=== PATIENT | male | born 1955 | race Caucasian/White ===

== ENCOUNTER 2016-12-09 15:13 | Emergency (ER) | payer MEDICARE ==
--- NOTE | ~2016-12-09 | ER ---
PATIENT'S NAME: DARREN [facility] AGE: 61 Y [address] ROOM: [place] [address] LOCATION: ED ADMIT DATE: 12/09/2016 ER/Outpatient Report DISCHARGE DATE: 12/09/2016 FAMILY PHYSICIAN: PHYSICIAN, NO ATTENDING PHYSICIAN: Radames Sibley CHIEF COMPLAINT: Severe low back pain, bilateral low back. HISTORY OF PRESENT ILLNESS: The patient states that he has chronic low back issues and has a history of spine surgery. He had been doing well with his normal issues with urinary retention and constipation that have not changed, however, the pain in his low back has been worse today. He spent yesterday mostly sitting on a golf cart which is unusual for him. His Tylenol has not been helping. He did not feel any significant acute changes and has no recent falls or other injuries to the area. He is otherwise at his baseline. He denies any weakness or numbness or tingling in the lower extremities that is new. PAST MEDICAL HISTORY: Documented on the record and reviewed by me. SOCIAL HISTORY: Documented on the record and reviewed by me. MEDICATIONS: Documented on the record and reviewed by me. ALLERGIES: DOCUMENTED ON THE RECORD AND REVIEWED BY ME. REVIEW OF SYSTEMS: All systems reviewed and negative except as noted in the HPI. PHYSICAL EXAMINATION: VITAL SIGNS: Blood pressure 151/82, pulse is 72, respiratory rate is 18, temperature 97.9, SpO2 is 96% on room air. Pain is rated 8/10. GENERAL: Age-appropriate male, wheeled into the exam room in a wheelchair, in [id number] pain with no respiratory distress. NEUROLOGIC: Awake and alert. GCS 15. No obvious deficits with slightly decreased strength and sensation in the lower extremities, which he states is baseline. HEENT: Normocephalic, atraumatic. Eyes are PERRL. Oropharynx is clear. NECK: Supple. Trachea is midline. HEART: Regular rate and rhythm with no murmurs. PATIENT'S NAME: DARREN [facility] AGE: 61 Y [address] ROOM: [place] [address] LOCATION: ED ADMIT DATE: 12/09/2016 ER/Outpatient Report DISCHARGE DATE: 12/09/2016 FAMILY PHYSICIAN: PHYSICIAN, NO ATTENDING PHYSICIAN: Radames Sibley LUNGS: Clear to auscultation bilaterally. No rhonchi, wheezes, or rales. ABDOMEN: Soft, nontender, and nondistended. No rebound or guarding. BACK: Notable for tenderness at the L2, L3, L4 region. It is midline. No overlying skin changes. No fluctuance. The extremities are otherwise warm and well perfused. No obvious abnormalities otherwise. SKIN: Warm and intact. LABORATORY DATA AND X-RAYS: CT of the lumbar spine shows no acute processes. IMPRESSION: Severe musculoskeletal low back pain. EMERGENCY DEPARTMENT COURSE: The patient was evaluated as above. Given his age and severe midline back pain, CT scan was obtained with no acute changes as above. He was given tramadol with marked improvement in his symptoms. He was able to walk at his baseline with a cane. We will give him a short prescription for tramadol. Recommend activity as tolerated. Follow up with primary care providers as needed or return immediately if there is any worsening of his baseline constipation and urinary retention issues or other any new sensory changes. His neuro exam is at his baseline and it is not consistent with an acute change indicating possibility of cauda equina syndrome. MD ZION BUENO/laina /[id number] d: 12/10/16 1616 t: 12/11/16 0642, OUTPATIENT REPORT
[~2016-12-09 15:13] MED LIST: AFRIN) (GENASAL15 ML NOSE; ALEVE220 MG PO; LEVAQUIN250 MG PO; TYLENOL EXTRA500 MG PO; TYLENOL/COD#31 TAB PO
[2017-02-04] MEDS ORDERED: MEDROL4 MG PO (14:42)
== END 2016-12-09 17:37 | disposition disaster alternative care site (69) ==
LOC: GMED 15:13
DX: M54.5 Low back pain (principal)

== ENCOUNTER → 2017-02-06 | Day surgery (SDC) | payer MEDICARE ==
[~2017-02-06] VITALS: Ht 167.6 cm; Wt 75.0 kg
[~2017-02-06] MED LIST changes: +MEDROL4 MG PO; +NORCO 5-325 TA1 EACH PO
--- NOTE | ~2017-02-06 | OR ---
PATIENT'S NAME: DARREN BROWNING [facility] AGE: 61 Y [address] ROOM: [place] [address] LOCATION: [facility] ADMIT DATE: 02/06/2017 OR/Procedure Report DISCHARGE DATE: FAMILY PHYSICIAN: DEWEY CALDERON MD ATTENDING PHYSICIAN: Carissa Gutiérrez SURGEON: Keshawn Marie MD SAND SCREENER OPERATOR: DATE OF PROCEDURE: 02/06/2017 PROCEDURE: Left L4-L5 transforaminal epidural steroid injection. The patient has lumbar disk disease with radiculopathy left side greater than the right. He has had a prior laminectomy, low back pain, and degenerative disc disease. Risks, benefits, and alternatives were explained to the patient and he wished to proceed. DESCRIPTION OF PROCEDURE: He was taken to the procedure room and placed in prone position. Back was prepped with Betadine x3 and sterile drape applied over top. Fluoroscopy was then used to identify the L4-L5 interspace. After that, 3 mL of 1% lidocaine was used for local anesthetic. Next, under fluoroscopic guidance, a 22-gauge 3.5-inch spinal needle was advanced into position. Once it was felt to be in position, 1 mL of contrast was injected in the AP and lateral views, that showed good spread around the nerve root and spread in the epidural space. Next, a mixture of 2 mL of 2% lidocaine and 10 mg of preservative-free Decadron were injected without complication. Complications none. Blood loss none. Stylette placed. Needle removed. Hemostasis was achieved. The patient had multiple levels of potential disease. He immediately postop had significant relief of his pain. If this does not last, he may benefit from a transforaminal injection at another site, possibly 3-4. We will follow up with him in approximately 2 weeks. KESHAWN MARIE MD JJP/modl /[id number] d: 02/06/17 2145 t: 02/07/17 1501, OPERATIVE SUMMARY
== END | disposition disaster alternative care site (69) ==
LOC: GPOC 02-04 13:00 → GSDC 13:00
PROC: 3E0R3BZ Introduction of Anesthetic Agent into Spinal Canal, Percutaneous Approach (ICD-10-PCS; principal; 2017-02-06)
PROC: 3E0R33Z Introduction of Anti-inflammatory into Spinal Canal, Percutaneous Approach (ICD-10-PCS; 2017-02-06)
DX: M51.16 Intervertebral disc disorders with radiculopathy, lumbar region (principal); M48.06 Spinal stenosis, lumbar region; F17.200 Nicotine dependence, unspecified, uncomplicated; Z98.1 Arthrodesis status; Z98.890 Other specified postprocedural states

== ENCOUNTER 2017-03-19 16:00 | Inpatient (IN) | payer MEDICARE ==
[~2017-03-19] VITALS: Ht 167.6 cm; Wt 77.1 kg
--- NOTE | ~2017-03-19 | OR ---
PATIENT'S NAME: DARREN BROWNING [facility] AGE: 61 Y [address] [place]OM: [facility] [place] [place], [place] [address] LOCATION: [facility] ADMIT DATE: 03/20/2017 OR/Procedure Report DISCHARGE DATE: 03/23/2017 FAMILY PHYSICIAN: Marvin Terrazas MD ATTENDING PHYSICIAN: Carissa Gutiérrez SURGEON: Carissa Gutiérrez MD PREFINISH OPERATOR: Belinda Jones. DATE OF PROCEDURE: 03/20/2017 PREOPERATIVE DIAGNOSIS: Lumbar spinal stenosis. POSTOPERATIVE DIAGNOSIS: Lumbar spinal stenosis. PROCEDURES PERFORMED: 1. Bilateral laminectomy with decompression of neural elements and foraminotomy without diskectomy at L1-L2. 2. Bilateral laminectomy with decompression of neural elements and foraminotomy without diskectomy at L2-L3. 3. Bilateral laminectomy with decompression of neural elements and foraminotomy without diskectomy at L4-L5. 4. Redo laminectomy at L3-L4. 5. Excision of subcutaneous lipoma. ANESTHESIA: General. HISTORY: The patient is a 61-year-old gentleman who had had prior lumbar laminectomy. He presented with ongoing lower back and leg pain. MRI scan showed stenosis at L1-L2 and L2-L3 as well as at L4-L5. He also had residual stenosis at the area of his earlier surgery at L3-L4. Symptoms were becoming difficult to treat nonoperatively. Surgery was, therefore, recommended. The above procedure, benefits, and risks were discussed with the patient. With his consent, he was brought to the operating room for surgery. DESCRIPTION OF PROCEDURE: In the operating room, the patient was placed in a supine position. Anesthesia was induced and he was intubated. He was placed in a prone position on a Jamshid table taking care to protect all pressure points. The incision was marked out in the midline of his lower back, and the whole area was prepped and draped in a sterile fashion. Local anesthesia was infiltrated. The #10 blade was used to open the incision and deepen it to the fascial layer. Self-retaining retractors were placed. The paraspinous muscles were dissected off the spinous processes and laminae of L1 and L2. Dissection was continued to expose the L4-L5 level as well. The patient had had surgery at L3-L4 and there was some scar tissue in this area, but there PATIENT'S NAME: DARREN BROWNING [facility] AGE: 61 Y [address] ROOM: [address] [place], [place] [address] LOCATION: [facility] ADMIT DATE: 03/20/2017 OR/Procedure Report DISCHARGE DATE: 03/23/2017 FAMILY PHYSICIAN: Marvin Terrazas MD ATTENDING PHYSICIAN: Carissa Gutiérrez was still stenosis. Self-retaining retractors were placed. X-ray was obtained to confirm the position. Laminectomy was carried out at L1-L2 and L2-L3. The drill was used to drill down the laminae bilaterally at these two levels and the rongeur was used to remove the lamina as well as the spinous processes. The Kerrison rongeur was used to widen the spinal canal and to perform foraminotomies. At the L3-L4 level, there was still some stenosis here and this area was addressed. Laminectomy was repeated. The rest of the L4 as well as most of the L5 vertebra lamina was removed. Decompression continued until we had clear visualization of the nerve roots going out into their respective foramina. The central canal was also completely decompressed. Hemostasis was achieved. Irrigation was used to wash out the debris. The patient also had a lipoma in the subcutaneous area close to the surgery site and had requested for this lipoma to be removed. Lipoma was dissected in a subcutaneous fashion and excised. Retractors were removed and an epidural drain was left. The incision was closed with appropriate suture materials. A sterile dressing was applied. The patient was rolled back to a supine position. His anesthesia was reversed. He was extubated and taken to the recovery room to complete his recovery. I was present at and performed every aspect of this procedure, assisted at different stages by operating room nurses. There were no apparent intraoperative complications. Swabs, needles, and instruments were all accounted for at the end of the case. Estimated blood loss was less than 400 mL and there was no reason for blood transfusion. I expect the patient to benefit from this procedure. MD OLIVE MARINELLI/laina /[id number] d: 03/26/17 2312 t: 03/27/17 1948, OPERATIVE SUMMARY
--- NOTE | ~2017-03-19 | HP ---
PATIENT'S NAME: DARREN SONG [facility] AGE: 61 Y [address] ROOM: [place] [address] LOCATION: [facility] ADMIT DATE: 03/20/2017 History & Physical DISCHARGE DATE: 03/23/2017 FAMILY PHYSICIAN: Marvin Terrazas MD ATTENDING PHYSICIAN: Carissa Gutiérrez DATE OF SERVICE: PATIENT IDENTIFICATION: Darren Song is a 61-year-old male. PRESENTING COMPLAINTS: Low back pain. HISTORY OF PRESENT ILLNESS: The patient was seen in clinic on February 04, 2017 and he complained of back pain across his lower back and every step he took hurts. The pain was across the area just above the tailbone and a bit off to the right side and it went down both buttocks, more so to the right side. The patient had always had back problems and had even had prior back surgery, but this particular bouts of pain began about the week of November. By the week of November, his left leg was no longer working and he came to the emergency room where he was treated. Further treatment involved MRI scan which showed stenosis and was therefore referred to me for evaluation and treatment. The patient stated he had to walk, bent forward to get relief from the pain. He rated the pain as severe and described it as constant. PAST MEDICAL HISTORY: The patient had prior neck fusion. He has also had prior low back surgery of the L3-L4 level. Other past medical history includes bowel and bladder issues for which he sees Dr. Wang. REVIEW OF SYSTEMS: A 10-point review of systems was carried out. The only abnormal finding was as described in the history of present illness. SOCIAL HISTORY: The patient smokes cigarettes. He does not drink alcohol. FAMILY HISTORY: There is no family history relevant to present symptoms. PATIENT'S NAME: DARREN SONG [facility] AGE: 61 Y [address] ROOM: [place] [address] LOCATION: [facility] ADMIT DATE: 03/20/2017 History & Physical DISCHARGE DATE: 03/23/2017 FAMILY PHYSICIAN: Marvin Terrazas MD ATTENDING PHYSICIAN: Carissa Gutiérrez CURRENT MEDICATIONS: Please see chart. ALLERGIES: PLEASE SEE CHART. PHYSICAL EXAMINATION: GENERAL: The patient is a healthy-looking male who was not in distress when I saw him. VITAL SIGNS: Blood pressure 141/82, heart rate 78, weight 168 pounds. NEUROLOGIC: Speech is intact. Cranial nerves, no deficits seen. Motor examination, the patient had normal strength in his upper extremities, but he walks with a cane and uses a wheelchair sometimes. RESPIRATORY: Breathing was nonlabored at bedside. CARDIOVASCULAR SYSTEM: Heart sounds present. HEAD, EYES, EARS, NOSE, AND THROAT: The head is atraumatic. Eyes and ears no evidence of trauma. SKIN: The patient has a rash on the chest wall. EXTREMITIES: No cyanosis or clubbing. REVIEW OF IMAGING STUDIES: The patient had lumbar laminectomy performed January 24, 2017. The MRI scan shows spinal stenosis at L1-2, L2-3. There is evidence of previous surgery at L3-4 and there is also stenosis at L4-5. MEDICAL DECISION MAKING: I reviewed the MRI with the patient and explained treatment options. I recommended lumbar laminectomy for the patient. The patient was agreeable to surgery and the surgery was laminectomy at L1-2, L2-3, and L4-5. Surgery was scheduled for March 20, 2017. MD OLIVE MARINELLI/laina /[id number] D: T: 811 HISTORY & PHYSICAL
--- NOTE | ~2017-03-19 | DS ---
PATIENT'S NAME: DARREN BROWNING [facility] AGE: 61 Y [address] ROOM: [address] [address] LOCATION: [facility] ADMIT DATE: 03/20/2017 Discharge Summary DISCHARGE DATE: 03/23/2017 FAMILY PHYSICIAN: Marvin Terrazas MD ATTENDING PHYSICIAN: Kasie Gutiérrez REASON FOR ADMISSION: The patient was a scheduled admission for an elective procedure. TREATMENT RENDERED: The patient was taken to the operating room on March 20, 2017 and underwent decompressive laminectomy from L1 to L5. He had presented with low back pain. His surgery was uncomplicated. His postoperative course was uneventful. He also had a lipoma excised from his lumbar region during the surgery. The patient did well and by the 23 of March had met all criteria for dismissal. He was therefore dismissed on that day and will be followed up in the Neurosurgery Clinic to see how he is doing. KASIE GUTIÉRREZ MD CNO/modl /[id number] CC: Marvin Terrazas MD d: 03/27/17 0839 t: 03/27/17 1950, DISCHARGE SUMMARY
[~2017-03-19 16:00] MED LIST changes: -NORCO 5-325 TA1 EACH PO
--- NOTE | 2017-03-20 16:42 | NUR ---
Significant Event: Patient received from PACU at 1530. First hourly at 1915. Dressing dry and intact to back. JAYSON drain to back. O2 at 4L per nasal cannula. Shannon removed in PACU at 1500. No void Follow up:
--- NOTE | 2017-03-20 18:39 | NUR ---
I reviewed and agree with charting by SN Tim
--- NOTE | 2017-03-21 03:44 | NUR ---
Pt 1 assist w/ GB and cane. Pt voiding quantity sufficient. Pt weaned to room air at 0120, but was put back on 2L per NC at 0340. 180cc's out of JAYSON. Windy is controlling pain. Dressing C/D/I. Pt has MRI this morning.
--- NOTE | 2017-03-21 17:49 | NUR ---
Significant Event: Ambulates with one assist and cane. Dressing C/D/I. JAYSON Drain with 160mL out this shift. [place] 1 tab last at 1311. Titrate to room air. Follow up:
--- NOTE | 2017-03-22 04:34 | NUR ---
Significant Event: Dressing is clean, dry and intact. CSM WNL. Voids without difficulty. 1 assist with transfers. Had pain issues at the beginning of the shift, but better now. Griffith at 0219. Morphine at 1944. JAYSON drain with 115 ml out. Follow up:
--- NOTE | 2017-03-22 13:00 | NUR ---
SPOKE TO PATIENT REGARDING CM AND OUR ROLE. PATIENT LIVES ALONE IN OWN HOME, HE IS PLANNING ON GOING HOME ONCE HE IS READY FOR DISCHARGE. HE REPORTS THAT HE HAS ALL THE DME THAT HE NEEDS. HE DOES NOT ANTICPATE ANY DISCHARGE NEEDS AT THIS TIME.
--- NOTE | 2017-03-22 14:45 | NUR ---
Significant Event:VSS, rates pain 4-5/10 in lumbar back and R hip area. [place] 1 tab at 1030, with relief. Reports intermittent numbness to R index and middle finger, and R hip. R hip numbness seems to improve with ambulation. Pedal pulses +2/warm legs/feet. Tx with SBA assist 1, GB/Cane. slightly unsteady. Participated with therapies. [place] barrier dsg and JAYSON drain CDI to back. 90ml out JAYSON. Voids. No BM. Pt states he has chronic constipation, takes a herbal OTC at home with good results. Refuses prn laxative/stool softner. Pt informed his PCP on rounds. Follow up:Monitor
--- NOTE | 2017-03-23 03:45 | NUR ---
Pt AOx3. Up one assist cane. 95cc's out of JAYSON. Windy last at 0300. Dressing c/d/i. Pt refused pneumatic stockings.
[2017-03-23] MEDS ORDERED: NORCO 5-325 TA1 EACH PO (11:31)
== END 2017-03-23 12:50 | disposition disaster alternative care site (69) | DRG 465 ==
LOC: G3N 03-20 07:39
PROVIDERS: ADMIT Neurological Surgery
DX: M48.06 Spinal stenosis, lumbar region (principal); J44.9 Chronic obstructive pulmonary disease, unspecified; D17.1 Benign lipomatous neoplasm of skin and subcutaneous tissue of trunk; Z98.1 Arthrodesis status
CPT/HCPCS: G8978; G8979; G8980; G8987; G8988; G8989; J0690; J1040; J1100; J2001; J2270; J2405; J2795; J3010; J7030; J7120